=== PATIENT | male | born 1965 | race Hispanic/Latino ===

== ENCOUNTER 2017-02-18 12:29 | Emergency (ER) | payer OTHER ==
[~2017-02-18] VITALS: Ht 170.2 cm; Wt 122.5 kg
[2017-02-18 12:44] VITALS: BP 170/90
--- NOTE | 2017-02-18 12:49 | ED NECK/BACK PAIN COMPLAINT ---
See Addendum History of Present Illness General Chief Complaint: Lower Extremity Problems Stated Complaint: LEG NUMBNESS AND TINGLING Source: patient Exam Limitations: no limitations Vital Signs & Intake/Output Vital Signs & Intake/Output Vital Signs Date Time Temp Pulse Resp B/P Pulse O2 O2 Flow FiO2 Ox Delivery Rate 02/18 1244 97.0 74 18 170/90 98 Room Air Allergies Coded Allergies: NO KNOWN ALLERGIES (02/18/17) Triage Note: PT STATES THAT HE IS A DIABETIC AND THAT SINCE LAST PM HE HAS BEEN HAVING A PINS AND NEEDLE FEELING IN HIS L FOOT. DENIES PAIN. Triage Nurses Notes Reviewed? yes Onset: Abrupt Duration: constant Timing: single episode today HPI: Patient is a 51-year-old male with a past medical history of type 2 insulin- dependent diabetes and hypertension who states that he ran out of his insulin yesterday in which he gradually developed right-sided heel and foot paresthesia and numbness. Patient denies any injury denies any back pain however he states it feels "weird when I walk" (CY OWENS) Past History Travel History Traveled to [place] past 21 day No Medical History Any Pertinent Medical History? see below for history Neurological: NONE EENT: NONE Cardiovascular: hypertension Respiratory: NONE Gastrointestinal: NONE Hepatic: NONE Renal: NONE Musculoskeletal: NONE Psychiatric: NONE Endocrine: diabetes Blood Disorders: NONE Cancer(s): NONE OUTREACH LIAISON/Reproductive: NONE Surgical History Surgical History: non-contributory Psychosocial History What is your primary language Citizen Of [place] Tobacco Use: Never used ETOH Use: denies use Illicit Drug Use: denies illicit drug use Family History Hx Contributory? No (CY OWENS) Review of Systems Review of Systems Constitutional: Reports: no symptoms. Eyes: Reports: no symptoms. Ears, Nose, Throat, Mouth: Reports: no symptoms. Respiratory: Reports: no symptoms. Cardiovascular: Reports: no symptoms. Gastrointestinal/Abdominal: Reports: no symptoms. Musculoskeletal: Reports: no symptoms. Skin: Reports: no symptoms. Neurological/Psychological: Reports: see HPI, numbness, paresthesia. All Other Systems: Reviewed and Negative (CY OWENS) Physical Exam Physical Exam General Appearance: no apparent distress, comfortable, obese Neck: normal inspection, supple, full range of motion Comments: HEENT: Normal EENT exam, Neck: Supple, no lymphadenopathy, normal range of motion without pain or tenderness Back: Nontender, no CVA tenderness. Cardiovascular: Regular rate and rhythms no murmurs rubs or gallops, normal JVP Respiratory: Chest nontender. No respiratory distress.breath sounds clear to auscultation bilaterally Abdomen: Soft, nontender nondistended, no appreciable organomegaly. Normal bowel sounds. No ascites Extremity: No edema, no calf tenderness to palpation, normal and equal pulses. Neuro: Alert oriented x3, motornormal, Skin: No appreciable rash on exposed skin, skin is warm and dry. Psych: Mood and affect is normal, memory and judgment is normal. Right foot normal inspection nontender generalized decreased sensation most localized to the calcaneus region Pedal pulse +2 No erythema no warmth (CY OWENS) Progress Differential Diagnosis: aortic dissection, C spine injury, carotid dissection, cauda equina syn, herniated disc, myofascial strain, pyelo/UTI, sciatica, spinal cord inj, thoracic outlet syn, T/L spine injury, ureterolithiasis, DIABETIC NEUROPATHY, (CY OWENS) Plan of Care: Orders Procedure Date/time Status LACTIC ACID 02/18 1620 Active LACTIC ACID 02/18 1320 Complete COMPREHENSIVE METABOLIC PANEL 02/18 1320 Complete CBC WITHOUT DIFFERENTIAL 02/18 1320 Complete ACETONE 02/18 1320 Complete FingerStick- Glucose 02/18 1249 Active Current Medications Sig/Audrey Start time Last Medication Dose Stop Time Status Admin Sodium Chloride 1,000 ML BOLUS ONE 02/18 1330 AC (Normal Saline 0.9%) 02/18 1429 Laboratory Tests 02/18/17 1326: Lactic Acid Pending 02/18/17 1326: Anion Gap 13, Estimated GFR > 60, BUN/Creatinine Ratio 17.3, Glucose 517 *H, Lactic Acid 2.4 H, Calcium 10.0, Total Bilirubin 1.9 H, AST 20, ALT 32, Alkaline Phosphatase 92, Total Protein 7.4, Albumin 4.6, Globulin 2.8, Albumin/ Globulin Ratio 1.6, CBC w Diff NO MAN DIFF REQ, RBC 6.19 H, MCV 81.5, MCH 27.8, RDW 12.1, MPV 9.1, Gran % 75.5 H, Lymphocytes % 16.8 L, Monocytes % 6.4, Eosinophils % 0.9, Basophils % 0.4, Absolute Granulocytes 6.5, Absolute Lymphocytes 1.4, Absolute Monocytes 0.6, Absolute Eosinophils 0.1, Absolute Basophils 0, PUBS MCHC 34.1, Acetone Level NEGATIVE After my initial evaluation patient stated to staff that he needed to use the restroom and which patient was not to be found and patient was checked outside and in all bathrooms and noted to most likely have eloped from the emergency room (CY OWENS) Departure Departure Disposition: ER WALKOUT Condition: Stable Clinical Impression Primary Impression: Hyperglycemia Secondary Impressions: Diabetic neuropathy Referrals: PATIENT HAS NO PRIMARY CARE DR Departure Forms: Customer Survey General Discharge Information (CY OWENS) PA/SENIOR HR MANAGER Co-Sign Statement Statement: ED Attending supervision documentation- [] I saw and evaluated the patient. I have also reviewed all the pertinent lab results and diagnostic results. I agree with the findings and the plan of care as documented in the PA's/SENIOR HR MANAGER's documentation. [X] I have reviewed the ED Record and agree with the PA's/SENIOR HR MANAGER's documentation. [] Additions or exceptions (if any) to the PAs/SENIOR HR MANAGER's note and plan are summarized below: [] (MAUREEN BARROW,HUNTER)
[2017-02-18 13:36] LABS: ABSOLUTE BASOPHIL COUNT 0 /CUMM (0.0-0.2); ABSOLUTE EOSINOPHIL COUNT 0.1 /CUMM (0.0-0.7); ABSOLUTE GRANULOCYTE CT 6.5 /CUMM (1.4-6.5); ABSOLUTE LYMPH COUNT 1.4 /CUMM (1.2-3.4); ABSOLUTE MONOCYTE COUNT 0.6 /CUMM (0.10-0.60); BASOPHIL % 0.4 % (0.0-2.0); EOSINOPHIL % 0.9 % (0-5); GRANULOCYTE % 75.5 % (42.2-75.2); HEMATOCRIT 50.4 % (42-52); MEAN CORPUSCULAR HGB 27.8 PG (27.0-31.0); MEAN CORPUSCULAR HGB CONC 34.1 G/DL (33.0-37.0); MEAN CORPUSCULAR VOLUME 81.5 FL (80.0-94.0); MEAN PLATELET VOLUME 9.1 FL (7.4-10.4); PLATELET COUNT 231 /CUMM (130-400); RBC DISTRIBUTION WIDTH 12.1 % (11.5-14.5); RED BLOOD CELL CT 6.19 /CUMM (4.70-6.10); WHITE BLOOD CELL COUNT 8.6 /CUMM (4.8-10.8)
== END 2017-02-18 13:35 ==
LOC: ERH 12:29
PROVIDERS: Physician Assistant
DX: E11.65 Type 2 diabetes mellitus with hyperglycemia (principal); E11.21 Type 2 diabetes mellitus with diabetic nephropathy; Z79.4 Long term (current) use of insulin

== ENCOUNTER 2017-04-10 17:45 | Emergency (ER) | payer OTHER ==
[~2017-04-10] VITALS: Ht 170.2 cm; Wt 122.5 kg
--- NOTE | 2017-04-10 18:43 | ED GI/GU/ABDOMINAL COMPLAINT ---
History of Present Illness General Chief Complaint: Male Genitourinary Problems Stated Complaint: ?UTI Source: patient Exam Limitations: no limitations Vital Signs & Intake/Output Vital Signs & Intake/Output Vital Signs Date Time Temp Pulse Resp B/P B/P Pulse O2 O2 Flow FiO2 Mean Ox Delivery Rate 04/10 1949 97.8 86 22 141/83 100 04/10 1846 98 Room Air 04/10 1801 97.0 93 16 150/86 97 Room Air Allergies Coded Allergies: NO KNOWN ALLERGIES (02/18/17) Reconcile Medications Insulin Aspart (Novolog) 100 UNIT/ML VIAL DM (Reported) Liraglutide (Victoza 3-Amarjit) (Unknown Strength) PEN.INJCTR (Unknown Dose) SC QPM DM (Reported) Nystatin 100,000 UNIT/GRAM CREAM..G. 1 REZA TOP TID TINEA CRURIS apply to affected area(s) Olmesartan Medoxomil (Benicar) (Unknown Strength) TABLET (Unknown Dose) PO DAILY BP (Reported) Triage Note: PT STATES HE IS A DIABETIC AND HE IS UNCIRCUMCISED AND HE THINKS HE HAS AN INFECTION BECAUSE HIS PENIS IS SO SWOLLEN AND HE CANT CLEAN OR PULL BACK HIS FORESKIN TO CLEAN IT. Triage Nurses Notes Reviewed? yes HPI: Patient states that his blood sugars have been running very high for a prolonged time. Patient does not know how much insulin to give himself. Patient states that because his sugar runs high his pills glucose into his urine. Patient is uncircumcised. Patient states that when his sugar runs very high he gets a rash and swelling to his penis. Patient states he usually uses hydrocortisone cream and things get better however the swelling is getting worse and he noticed a white discharge from the foreskin. Patient denies any fevers or chills. There is no nausea or vomiting. There is no headache or blurry vision. Patient took His insulin this morning. Past History Travel History Traveled to [place] past 21 day No Medical History Any Pertinent Medical History? see below for history Neurological: NONE EENT: NONE Cardiovascular: hypertension Respiratory: NONE Gastrointestinal: NONE Hepatic: NONE Renal: NONE Musculoskeletal: NONE Psychiatric: NONE Endocrine: diabetes Blood Disorders: NONE Cancer(s): NONE OFFSET PRINTING PRESSMEN/Reproductive: NONE Surgical History Surgical History: non-contributory Psychosocial History What is your primary language [place] Tobacco Use: Quit >30 days ago ETOH Use: denies use Illicit Drug Use: denies illicit drug use Family History Hx Contributory? No Review of Systems Review of Systems Constitutional: Reports: no symptoms. EENTM: Reports: no symptoms. Respiratory: Reports: no symptoms. Cardiovascular: Reports: no symptoms. GI: Reports: no symptoms. Genitourinary: Reports: see HPI. Musculoskeletal: Reports: no symptoms. Skin: Reports: no symptoms. Neurological/Psychological: Reports: no symptoms. Hematologic/Endocrine: Reports: no symptoms. Immunologic/Allergic: Reports: no symptoms. All Other Systems: Reviewed and Negative Physical Exam Physical Exam General Appearance: well developed/nourished, alert, awake, anxious Head: atraumatic, normal appearance Eyes: Bilateral: PERRL, EOMI. Ears, Nose, Throat, Mouth: hearing grossly normal, moist mucous membrane Neck: normal inspection, supple, full range of motion Respiratory: normal breath sounds, chest non-tender, no respiratory distress, lungs clear Cardiovascular: regular rate/rhythm, normal peripheral pulses Gastrointestinal: normal bowel sounds, soft, non-tender, no organomegaly Male Genitals: TINEA CRURIS Back: normal inspection, normal range of motion, NO CVA TENDERNESS Extremities: normal range of motion Neurologic/Psych: no motor/sensory deficits, awake, alert, oriented x 3, normal gait, normal mood/affect Skin: intact, normal color, warm/dry Core Measures ACS in differential dx? No Severe Sepsis Present: No Septic Shock Present: No Progress Differential Diagnosis: HONK, ELECTROLYTE ABNORMALITY, UTI, TINEA Plan of Care: Orders Procedure Date/time Status URINALYSIS 04/10 1849 Complete COMPREHENSIVE METABOLIC PANEL 04/10 1849 Complete CBC WITHOUT DIFFERENTIAL 04/10 1849 Complete Current Medications Sig/Audrey Start time Last Medication Dose Stop Time Status Admin Sodium Chloride 1,000 ML BOLUS ONE 04/10 2030 AC (Normal Saline 0.9%) 04/10 2129 Sodium Chloride 1,000 ML BOLUS ONE 04/10 2030 AC (Normal Saline 0.9%) 04/10 2129 Laboratory Tests 04/10/17 1852: Anion Gap 13, Estimated GFR > 60, BUN/Creatinine Ratio 18.8, Glucose 493 H, Calcium 9.0, Total Bilirubin 0.9, AST 17, ALT 43, Alkaline Phosphatase 91, Total Protein 6.2 L, Albumin 3.9, Globulin 2.3, Albumin/Globulin Ratio 1.7, Urine Color YEL, Urine Clarity CLEAR, Urine pH 6.0, Ur Specific [place] 1.015, Urine Protein TRACE H, Urine Ketones NEG, Urine Nitrite NEG, Urine Bilirubin NEG, Urine Urobilinogen 0.2, Ur Leukocyte Esterase NEG, Ur Microscopic SEDIMENT EXAMINED, Urine WBC RARE, Ur Epithelial Cells RARE, Urine Hemoglobin NEG, Urine Glucose >=1000 H 04/10/179: CBC w Diff NO MAN DIFF REQ, RBC 5.49, MCV 82.5, MCH 27.5, RDW 12.4, MPV 9.1, Gran % 75.6 H, Lymphocytes % 15.2 L, Monocytes % 6.6, Eosinophils % 2.3, Basophils % 0.3, Absolute Granulocytes 5.9, Absolute Lymphocytes 1.2, Absolute Monocytes 0.5, Absolute Eosinophils 0.2, Absolute Basophils 0, PUBS MCHC 33.3 Initial ED EKG: none Comments: Patient left prior to further treatment of his blood sugar. Patient did not inform anybody that he was leaving. Patient left without his paperwork. Departure Departure Disposition: ER WALKOUT Condition: Stable Clinical Impression Primary Impression: Tinea cruris Secondary Impressions: Hyperglycemia Referrals: JENAE BARROW,JAYSON LIGHT MD,JETT (PCP/Family) Additional Instructions: FOLLOW UP WITH DR. EMANUEL AND OR DR. MACDONALD FOR YOUR DIABITIES FOLLOW UP DR. VASQUEZ TO DISCUSS CIRCUMCISION RETURN FOR ANY CONCERNS USE THE CREAM DIRECTED Departure Forms: Customer Survey General Discharge Information Prescriptions: Current Visit Scripts Nystatin 1 REZA TOP TID #15 GM apply to affected area(s)
[2017-04-10] MEDS ORDERED: NYSTATIN15 G1 TOP (18:44)
[2017-04-10 19:12] LABS: ABSOLUTE BASOPHIL COUNT 0 /CUMM (0.0-0.2); ABSOLUTE EOSINOPHIL COUNT 0.2 /CUMM (0.0-0.7); ABSOLUTE GRANULOCYTE CT 5.9 /CUMM (1.4-6.5); ABSOLUTE LYMPH COUNT 1.2 /CUMM (1.2-3.4); ABSOLUTE MONOCYTE COUNT 0.5 /CUMM (0.10-0.60); BASOPHIL % 0.3 % (0.0-2.0); EOSINOPHIL % 2.3 % (0-5); GRANULOCYTE % 75.6 % (42.2-75.2); HEMATOCRIT 45.3 % (42-52); MEAN CORPUSCULAR HGB 27.5 PG (27.0-31.0); MEAN CORPUSCULAR HGB CONC 33.3 G/DL (33.0-37.0); MEAN CORPUSCULAR VOLUME 82.5 FL (80.0-94.0); MEAN PLATELET VOLUME 9.1 FL (7.4-10.4); PLATELET COUNT 209 /CUMM (130-400); RBC DISTRIBUTION WIDTH 12.4 % (11.5-14.5); RED BLOOD CELL CT 5.49 /CUMM (4.70-6.10); WHITE BLOOD CELL COUNT 7.8 /CUMM (4.8-10.8)
[2017-04-10] MEDS ORDERED: NOVOLOG100 UNIT/2 SC (19:38)
[2017-04-10] MEDS ORDERED: BENICAR5 M1 PO (19:39)
[2017-04-10] MEDS ORDERED: VICTOZA 3-0.6 MG/0.1 SC (19:39)
[2017-04-10 19:49] VITALS: BP 141/83
== END 2017-04-10 20:49 ==
LOC: ERH 17:45
PROVIDERS: Emergency Medicine
DX: B35.6 Tinea cruris (principal); E11.65 Type 2 diabetes mellitus with hyperglycemia
CPT/HCPCS: 81001; 96372; J1815